=== PATIENT | female | born 1965 | race Two or more races ===

== ENCOUNTER 2020-12-08 06:33 | Outpatient (CLI) | payer OTHER | END 2020-12-08 23:59 | disposition home or self-care (01) | LOC: LAB 06:33 | PROVIDERS: ATTEND Orthopaedic Surgery | DX: Z01.812 Encounter for preprocedural laboratory examination (principal); Z20.822 Contact with and (suspected) exposure to COVID-19 ==

== ENCOUNTER 2020-12-10 06:27 | Day surgery (SDC) | payer OTHER ==
[2020-12-10] MEDS ORDERED: EPHEDRINE SULFATE 50 MG/ML AMPUL IM ONE (06:28)
[2020-12-10] MEDS ORDERED: IV NORMAL SALINE 1000 ML BAG IV ONE (06:28)
[2020-12-10] MEDS ORDERED: GLYCOPYRROLATE 0.2 MG/ML VIAL IJ ONE (06:28)
[2020-12-10] MEDS ORDERED: LIDOCAINE-MPF 2% 5 ML VIAL IJ ONE (06:28)
[2020-12-10] MEDS ORDERED: KETOROLAC TROMETHAMINE 30 MG INJ IM ONE (06:28)
[2020-12-10] MEDS ORDERED: CEFAZOLIN 1 G VIAL IM ONE (06:28)
[2020-12-10] MEDS ORDERED: SEVOFLURANE 250 ML BOTTLE IH ONE (06:28)
[2020-12-10] MEDS ORDERED: DEXAMETHASONE SOD PHOSPHATE 4 MG INJ IV ONE (06:28)
[2020-12-10] MEDS ORDERED: ONDANSETRON 4 MG/2 ML VIAL IV ONE (06:28)
[2020-12-10] MEDS ORDERED: METOCLOPRAMIDE HCL 10 MG/2 ML VIAL IV ONE (06:28)
[2020-12-10] MEDS ORDERED: PROPOFOL 200 MG/20 ML BOTTLE IV ONE (06:28)
[2020-12-10] MEDS ORDERED: NEOSTIGMINE METHYLSULFATE 10 MG/10 ML VIAL IM ONE (06:28)
[2020-12-10] MEDS ORDERED: BUPIVACAINE/EPI PF 0.5% 10 ML VIAL ONE ×2 (06:53→07:52)
[2020-12-10] MEDS ORDERED: BACITRACIN/POLYMYXIN B OINT 15 GM TUBE ONE (06:55)
[2020-12-10] MEDS ORDERED: POLYMYXIN B SULFATE 500,000 UNITS, BACITRACIN 50,000 UNITS, NORMAL SALINE 20 ML MC ONE (07:00)
[2020-12-10] MEDS ORDERED: FENTANYL CITRATE 100 MCG/2 ML AMPUL ONE ×2 (07:11→10:41)
[2020-12-10] MEDS ORDERED: MIDAZOLAM HCL 2 MG/2 ML VIAL ONE (07:12)
[2020-12-10] MEDS ORDERED: ROCURONIUM BROMIDE 50 MG/5 ML VIAL ONE (07:17)
[2020-12-10 07:53] LABS: *URINE HCG, QUAL NEG (NEGATIVE)
[2020-12-10] MEDS ORDERED: TRAMADOL HCL 50 MG TABLET ONE (12:15)
== END 2020-12-10 12:25 | disposition home or self-care (01) ==
LOC: DS 06:27
PROVIDERS: ATTEND Orthopaedic Surgery
DX: M75.101 Unspecified rotator cuff tear or rupture of right shoulder, not specified as traumatic (principal); Z79.899 Other long term (current) drug therapy; Z98.890 Other specified postprocedural states
CPT/HCPCS: 23130; 23410; 84703; C1713; J0690; J1100; J1885; J2250; J2405; J2765; J3010 ×2; J3490 ×8; J7120; A4565; A4649; A4663; J7030